=== PATIENT | female | born 1955 | race Caucasian/White ===

== ENCOUNTER → 2020-07-07 | Outpatient (CLI) | payer MEDICARE ==
--- NOTE | 2020-07-07 13:49 | KCIC ---
EXAM: Left hand, 3 views. HISTORY: Pain. COMPARISON: None. FINDINGS: 3 views of the left hand are obtained. There is moderate second and fifth distal interphala ngeal joint space narrowing, subchondral sclerosis and spurring sclerosis and spurring. There is mild first interphalangeal joint spurring. IMPRESSION: 1. 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 2. No acute osseous finding. Electronically signed by: Bella Rod MD (07/07/2020 1:46 PM) [id number]
== END ==
LOC: KCIC 13:07
PROVIDERS: ATTEND Family Medicine
DX: M19.042 Primary osteoarthritis, left hand (principal); M19.041 Primary osteoarthritis, right hand; R20.0 Anesthesia of skin
CPT/HCPCS: 73130-50